=== PATIENT | female | born 1955 | race American Indian/Alaskan Native ===

== ENCOUNTER 2017-04-13 07:05 | Outpatient (CLI) | payer OTHER ==
--- NOTE | 2017-04-13 13:05 | Mammography Report ---
BONE DEXA:04/13/17 07:45:00 CLINICAL: Postmenopausal. No comparison. TECHNIQUE: Two site bone DEXA performed on an Hologic scanner. FINDINGS: The average BMD of the lumbar spine L1-L4 is 0.850g/cm squared with a T-score of -1.8 and a Z-score of 90.9. The average BMD of the left hip is 0.795g/cm squared with a T-score of -1.2 and a Z-score of -0.6. The femoral neck BMD is 0.578g/cm squared with a T score of -2.4 and Z score of -1.4 IMPRESSION: 1. WHO classification: Osteopenia with increased fracture risk based on both spine and left femoral neck measurements. 2. The FRAX 10 year fracture probability for a major osteoporotic fracture is 5.2%. 3. The FRAX 10 year fracture probability for hip fracture is 0.9%. Note: FRAX version 3.01. Fracture probability calculated for an untreated patient. Fracture probability may be lower if the patient has received treatment. RECOMMENDATION: Clinical correlation and routine screening. DEFINITIONS: BMD = Bone Mineral Density T-score = BMD related to mean peak bone mass of young adult (mean expressed in Standard Deviation) Z-score = Age matched BMD expressed in SD World Health Organization (WHO) Diagnostic Criteria Normal T-score > -1 SD Osteopenia T-score between -1 and -2.4 SD Osteoporosis T-score -2.5 SD or below NOTE: BMD is not the only risk factor for fracture; also consider factors such as the patient's age, risk of falling, previous osteoporotic fracture, family history of osteoporotic fractures, current smoker, and low body weight. All treatment decisions require clinical judgment and consideration of individual patient factors, including patient preferences, comorbidities, previous drug use and risk factors not captured in the FRAX model (e.g. frailty, falls, vitamin D deficiency, increased bone turnover, interval significant decline in BMD). Fracture probability is calculated for an untreated patient. Fracture probability may be lower if the patient has received treatment. Z-scores are not calculated if >80 years of age.
--- NOTE | 2017-04-13 15:39 | Mammography Report ---
BILATERAL DIGITAL SCREENING MAMMOGRAM with CAD : 04/13/17 07:05:00 CLINICAL: Routine screening. COMPARISON:None available. A previous mammogram was done at [facility]. FINDINGS: The breasts are mostly fatty with residual heterogeneously dense right retroareolar and bilateral outer fibroglandular densities. No mass, architectural distortion or suspicious calcifications. IMPRESSION: No mammographic evidence of malignancy. BI-RADS CATEGORY: 1 - - Negative RECOMMENDATION: Routine mammographic screening in one year. We will request a prior mammogram from [facility] and make comparison. COMMENT: Patient follow-up letters are generated by our [employer] application.
== END 2017-04-13 07:06 | disposition home or self-care (01) ==
LOC: MAMMO 07:05
PROVIDERS: ATTEND Obstetrics & Gynecology
DX: Z12.31 Encounter for screening mammogram for malignant neoplasm of breast (principal); M85.88 Other specified disorders of bone density and structure, other site; Z78.0 Asymptomatic menopausal state
CPT/HCPCS: 77067; 77080